=== PATIENT | female | born 1980 ===

== ENCOUNTER 2021-11-16 08:08 | Inpatient (IN) ==
[~2021-11-16 08:08] MED LIST: Buffered Lidocaine 1% SYRIN 1 ml INTRADERM ONE; Famotidine IV 10 MG/ML 2 ml VIAL (20 mg) IV ONE; Lactated Ringers 1000 ml BAG 1,000 ML IV SCH
[2021-11-16] MEDS ORDERED: fentaNYL 250 mcg/5 ml 50 MCG/ML 5 ml VIAL (250 MCG) ONE (08:33)
[2021-11-16] MEDS ORDERED: Rocuronium 50 mg VIAL 10 mg/ml 5 ml VIAL (50 mg) ONE ×2 (08:33→10:27)
[2021-11-16] MEDS ORDERED: Midazolam 2 mg/2 ml VIAL 1 mg/ml 2 ml VIAL (2 mg) ONE (08:33)
[2021-11-16] MEDS ORDERED: Heparin 5000 UNITS/ML 1 mL VIAL ONE (08:35)
[2021-11-16] MEDS ORDERED: ceFAZolin 1 GM ADVAN 1 GM ADDV.VIAL IVPB ONE (08:35)
[2021-11-16] MEDS ORDERED: ceFAZolin 2 GM PREMIX 2 GM/50 ML BAG ONE (08:35)
[2021-11-16] MEDS ORDERED: Famotidine IV 10 MG/ML 2 ml VIAL (20 mg) ONE (08:59)
[2021-11-16] MEDS ORDERED: Methylene Blue 0.5 % 50 MG/10 ML AMP IV ONE (09:21)
[2021-11-16] MEDS ORDERED: Bupivacaine 0.5% SDV PF 30ML VIAL ONE (09:21)
[2021-11-16] MEDS ORDERED: Lidocaine 1% w EPI 1:200,000 SDV 30 ML VIAL ONE (09:21)
[2021-11-16] MEDS ORDERED: Dexamethasone IV 4 MG/ML VIAL 1 ml VIAL ONE (10:20)
[2021-11-16] MEDS ORDERED: Ondansetron 4 mg VIAL 2 MG/ML 2 ml VIAL ONE ×2 (10:20→13:04)
[2021-11-16] MEDS ORDERED: HYDROmorphone 0.5 MG/0.5 ML SYRINGE ONE (10:28)
[2021-11-16] MEDS ORDERED: Metoclopramide 5 MG/ML VIAL (10 mg) IV PRN (11:17)
[2021-11-16] MEDS ORDERED: Ondansetron 4 mg VIAL 2 MG/ML 2 ml VIAL IV PRN ×2 (11:17→12:36)
[2021-11-16] MEDS ORDERED: fentaNYL 100 mcg/2 ml 50 MCG/ML VIAL IV PRN (11:17)
[2021-11-16] MEDS ORDERED: Naloxone 0.4 mg VIAL 0.4 mg/ml 1 ml VIAL IV PRN (11:17)
[2021-11-16] MEDS ORDERED: Phenylephrine 40 mcg/mL 10mL (400mcg) SYRINGE ONE (11:19)
[2021-11-16] MEDS ORDERED: HYDROcodone/ACET. 7.5/325 LIQ 15 ML UDC PO PRN (12:36)
[2021-11-16] MEDS ORDERED: Acetaminophen IV 1 GM/100ML 100 ML IV PRN (12:36)
[2021-11-16] MEDS ORDERED: diPHENhydraMINE IV 50 MG/ML 1 ml VIAL (BENADRYL) SLOW PUSH PRN (12:36)
[2021-11-16] MEDS ORDERED: HYDROmorphone 1 MG/1 ML SYRINGE IV SLOW PU PRN (12:36)
[2021-11-16] MEDS ORDERED: HYDROmorphone 0.5 MG/0.5 ML SYRINGE IV SLOW PU PRN (12:36)
[2021-11-16] MEDS ORDERED: Metoclopramide 5 MG/ML VIAL (10 mg) ONE (13:04)
[2021-11-16] MEDS ORDERED: fentaNYL 100 mcg/2 ml 50 MCG/ML VIAL ONE (13:10)
[2021-11-16] MEDS: Lactated Ringers 1000 ml BAG 1,000 ML IV SCH ×2 (14:39→20:48)
[2021-11-16] MEDS: Heparin 5000 UNITS/ML 1 mL VIAL SUBCUT SCH ×2 (15:29→22:04)
[2021-11-16] MEDS: Famotidine IV 10 MG/ML 2 ml VIAL (20 mg) IV SLOW PU SCH (22:03)
[2021-11-17] MEDS: Lactated Ringers 1000 ml BAG 1,000 ML IV SCH ×2 (03:34→10:30)
[2021-11-17] MEDS: Heparin 5000 UNITS/ML 1 mL VIAL SUBCUT SCH ×2 (06:06→14:12)
[2021-11-17] MEDS: Famotidine IV 10 MG/ML 2 ml VIAL (20 mg) IV SLOW PU SCH (08:26)
[2021-11-17 12:46] VITALS: BP 125/58
[2021-11-17] MEDS ORDERED: D5W 1/2 NS KCl 20 meq 1000 ml 1,000 ML IV SCH (13:00)
[2021-11-19] MEDS ORDERED: Scopolamine PATCH Remove NOTE PATCH OFF ONE (06:00)
== END 2021-11-17 15:15 | disposition home or self-care (01) | DRG 621 ==
LOC: AA 08:08 → SSU 14:15
PROVIDERS: ADMIT Surgery; ATTEND Surgery